=== PATIENT | male | born 1975 | race Caucasian/White ===

== ENCOUNTER 2020-12-29 02:05 | Emergency (ER) | payer OTHER ==
[2020-12-29] MEDS ORDERED: Nitroglycerin 0.4 MG Tab.SL ONE ×3 (02:15)
[2020-12-29] MEDS ORDERED: Aspirin 81 MG Tab.Chew PO ONE (02:25)
[2020-12-29] MEDS ORDERED: Nitroglycerin 0.4 MG Tab.SL SL ONE ×2 (02:25→02:31)
[2020-12-29] MEDS ORDERED: Sodium Chloride 0.9% 1,000 ML IV ONE (02:25)
[2020-12-29] MEDS ORDERED: Morphine 2 MG/ML SYRINGE IVPUSH ONE ×2 (02:25→02:31)
[2020-12-29] MEDS ORDERED: Sodium Chloride 0.9% 10 ML Syringe FLUSH PRN (02:25)
[2020-12-29] MEDS ORDERED: Clopidogrel 75 MG Tab PO ONE (02:28)
[2020-12-29] MEDS ORDERED: Heparin Sodium 5,000 Units/ML Vial IVPUSH ONE (02:28)
[2020-12-29] MEDS ORDERED: Ticagrelor 90 MG Tab PO ONE (02:30)
[2020-12-29] MEDS ORDERED: Heparin Sodium/0.45% NaCl 25,000 UNITS/500 ML BAG IV SCH (02:30)
[2020-12-29] MEDS ORDERED: Ondansetron 4 MG/2 ML SDV IVPUSH ONE (02:32)
--- NOTE | 2020-12-29 02:39 | EDM.PDOC ---
ED HPI GENERAL MEDICAL PROBLEM - General Time Seen by Provider: 12/29/20 02:24 Source of Information: Reports: Patient, Family - History of Present Illness INITIAL COMMENTS - FREE TEXT/NARRATIVE: Virgil is a 45 y/o male who presents to the ER with sharp, constant chest pain that radiates over his entire chest. He woke up from sleep about 30 minutes ago. Rates it 8/10. Denies any previous hx of cardiac issues. No nausea or vomiting. Denies health issues. Review of Systems - Review of Systems Review Of Systems: See Below Constitutional: Reports: No Symptoms Eyes: Reports: No Symptoms Ears: Reports: No Symptoms Nose: Reports: No Symptoms Mouth/Throat: Reports: No Symptoms Respiratory: Reports: No Symptoms Cardiovascular: Reports: Chest Pain GI/Abdominal: Reports: No Symptoms Genitourinary: Reports: No Symptoms Musculoskeletal: Reports: No Symptoms Skin: Reports: No Symptoms Neurological: Reports: No Symptoms Psychiatric: Reports: No Symptoms ED EXAM, GENERAL - Physical Exam Exam: See Below General Appearance: Alert, WD/WN, No Apparent Distress (Obese adult male, obviously in pain) Ears: Hearing Grossly Normal Nose: Normal Inspection Throat/Mouth: Normal Lips, Normal Oropharynx, Normal Voice Head: Atraumatic, Normocephalic Neck: Normal Inspection Respiratory/Chest: No Respiratory Distress, Lungs Clear Cardiovascular: Normal Peripheral Pulses, Regular Rate, Rhythm GI/Abdominal: Normal Bowel Sounds, Soft, Non-Tender, Other (Obese) (Male) Exam: Deferred Rectal (Males) Exam: Deferred Back Exam: Normal Inspection Extremities: Normal Inspection, Normal Range of Motion, No Pedal Edema, Normal Capillary Refill Neurological: Alert, Oriented, CN II-XII Intact, No Motor/Sensory Deficits Skin Exam: Warm, Dry, Intact, Normal Color #1 Interpretation EKG Date: 12/29/20 Time: 01:55 Rhythm: NSR EKG Interpretation Comments: SR with early elevation in V3 and V4 #2 Interpretation EKG Date: 12/29/20 Time: 02:37 Rhythm: Other (Sinus Tach) Rate (Beats/Min): 158 [place]: Normal P-Wave: Present QRS: RBBB ST-T: Elevated EKG Interpretation Comments: RBBB with ST Elevation, Acute MD Course - Vital Signs Text/Narrative:: 0200 Patient was seen on arrival. Labs and EKG orderd. Nitro SL ordered. 0220 Still having 8/10 pain, Morphine 1mg IVP ordered. 0235 [facility] contacted and EKgs sent for review. Harmony7Dr Urias is cardiology quality control scientist and did not feel this was a STEMI at this time. Will start Heparin and then plan transfer in AM. Morphine 1mg x 2 given for pain. Heparin 4000u bolus and then 1000 units/hr started. Brilinta 180mg po given. [address] changes in all leads with RBBB noted, when elevations more pronounced, BP drops. Still having 8/10 chest pain. Repeat EKG sent to [place] and Dr Urias accepted the patient. 0308 Pt departed ER with [facility]. Pain still present, but patient reports "Better". - Orders/Labs/Meds Orders: Active Orders 24 hr Category Date Time Status EKG Documentation Completion [RC] STAT Care 12/29/20 02:24 Ordered Chest 1V Frontal [CR] Stat Exams 12/29/20 02:24 Ordered Heparin Sodium/0.45% NaCl [Heparin 25,000 Units in 1/2 Med 12/29/20 02:30 Ordered NS 500 ML] 25,000 units in 500 ml IV TITRATE Sodium Chloride 0.9% @ Wide Open(1,000ml) Med 12/29/20 02:25 Ordered Sodium Chloride 0.9% [Normal Saline] 1,000 ml IV ONETIME Sodium Chloride 0.9% [Saline Flush] Med 12/29/20 02:25 Ordered 10 ml FLUSH ASDIRECTED PRN Saline Lock Insert [OM.PC] Stat Oth 12/29/20 02:24 Ordered Medication Orders Sodium Chloride (Normal Saline) 1,000 mls @ 999 mls/hr IV ONETIME ONE Stop: 12/29/20 03:25 Heparin Sodium/Sodium Chloride (Heparin 25,000 Units In 1/2 Ns 500 Ml) 25,000 units in 500 mls @ 20 mls/hr IV TITRATE HALLIE; Protocol Sodium Chloride (Sodium Chloride 0.9% 10 Ml Syringe) 10 ml FLUSH ASDIRECTED PRN PRN Reason: Keep Vein Open Labs: Laboratory Tests 12/29/20 12/29/20 12/29/20 Range/Units 02:20 02:20 02:20 WBC 9.0 (4.0-10.0) x10^3/uL RBC 4.92 (4.5-6.0) x10^6/uL Hgb 15.7 (14.0-18.0) g/dL Hct 45.2 (40.0-52.0) % MCV 91.9 (78.0-93.0) fL MCH 31.9 (26.0-32.0) pg MCHC 34.7 (32.0-36.0) g/dL RDW Coeff of Jace 13.1 (10.0-15.0) % Plt Count 301 (130-400) x10^3/uL Immature Gran % (Auto) 0.30 (0.00-0.43) % Neut % (Auto) 48.5 L (50.0-80.0) % Lymph % (Auto) 30.5 (25.0-50.0) % Stephens % (Auto) 12.1 H (2.0-11.0) % Eos % (Auto) 7.9 H (0.0-4.0) % Baso % (Auto) 0.7 (0.2-1.2) % Neut # (Auto) 4.4 (1.8-7.7) x10^3/uL Lymph # (Auto) 2.8 (1.0-4.8) x10^3/uL Stephens # (Auto) 1.1 H (0.0-0.8) x10^3/uL Eos # (Auto) 0.7 H (0.0-0.5) x10^3/uL Baso # (Auto) 0.1 (0.0-0.2) x10^3/uL Immature Gran # (Auto) 0.03 (0.00-0.07) x10^3/uL PT 9.9 (9.9-12.5) SEC INR 0.9 L (2.0-3.5) APTT 24.3 L (25.6-32.8) SEC Sodium 141 (136-145) mmol/L Potassium 4.2 (3.5-5.1) mmol/L Chloride 104 (98-107) mmol/L Carbon Dioxide 29 (21-32) mmol/L Anion Gap 12.2 (5-15) mmol/L BUN 20 H (7-18) mg/dL Creatinine 1.2 (0.70-1.30) mg/dL Est Cr Clr Drug Dosing TNP Estimated GFR (MDRD) > 60 Glucose 151 H (70-99) mg/dL Calcium 9.1 (8.5-10.1) mg/dL Corrected Calcium 9.3 (8.5-10.1) mg/dL Magnesium 2.1 (1.8-2.4) mg/dL Total Bilirubin 0.3 (0.2-1.0) mg/dL AST 26 (15-37) U/L ALT 48 (16-63) U/L Alkaline Phosphatase 62 (46-116) U/L Troponin I High Sens 13 (<=76) ng/L Total Protein 7.1 (6.4-8.2) g/dL Albumin 3.7 (3.4-5.0) g/dL Globulin 3.4 Albumin/Globulin Ratio 1.09 Amylase 59 (25-115) U/L Lipase 280 (73-393) U/L Meds: Medications Generic Name Dose Route Start Last Admin Trade Name Freq PRN Reason Stop Dose Admin Sodium Chloride 1,000 mls @ 999 mls/hr 12/29/20 02:25 Normal Saline IV 12/29/20 03:25 ONETIME ONE Heparin Sodium/Sodium Chloride 25,000 units in 500 mls @ 20 mls/hr 12/29/20 02:30 Heparin 25,000 Units In 1/2 Ns 500 Ml IV TITRATE HALLIE Protocol 1,000 UNITS/HR Sodium Chloride 10 ml 12/29/20 02:25 Sodium Chloride 0.9% 10 Ml Syringe FLUSH ASDIRECTED PRN Keep Vein Open Discontinued Medications Generic Name Dose Route Start Last Admin Trade Name Freq PRN Reason Stop Dose Admin Aspirin 324 mg 12/29/20 02:25 Aspirin 81 Mg Tab.Chew PO 12/29/20 02:26 ONETIME ONE Clopidogrel Bisulfate 600 mg 12/29/20 02:28 Clopidogrel 75 Mg Tab PO 12/29/20 02:29 ONETIME ONE Heparin Sodium (Porcine) 4,000 units 12/29/20 02:28 Heparin Sodium 5,000 Units/Ml Vial IVPUSH 12/29/20 02:29 .BOLUS ONE Heparin Sodium/Sodium Chloride Confirm 12/29/20 02:51 Heparin 25,000 Units In 1/2 Ns 500 Ml Administered 12/29/20 02:52 Dose 500 mls @ as directed .ROUTE .STK-MED ONE Morphine Sulfate 1 mg 12/29/20 02:25 Morphine 2 Mg/Ml Syringe IVPUSH 12/29/20 02:26 ONETIME ONE Morphine Sulfate 1 mg 12/29/20 02:31 Morphine 2 Mg/Ml Syringe IVPUSH 12/29/20 02:32 ONETIME ONE Nitroglycerin 0.4 mg 12/29/20 02:25 Nitroglycerin 0.4 Mg Tab.Sl SL 12/29/20 02:26 ONETIME ONE Nitroglycerin 0.4 mg 12/29/20 02:31 Nitroglycerin 0.4 Mg Tab.Sl SL 12/29/20 02:32 ONETIME ONE Ondansetron HCl 4 mg 12/29/20 02:32 Ondansetron 4 Mg/2 Ml Sdv IVPUSH 12/29/20 02:33 ONETIME ONE Ticagrelor 180 mg 12/29/20 02:30 Ticagrelor 90 Mg Tab PO 12/29/20 02:31 ONETIME ONE Departure - Departure Time of Disposition: 02:59 Disposition: DC/Tfer to Acute Hospital 02 Condition: Good Clinical Impression: STEMI (ST elevation myocardial infarction) Qualifiers: Involved coronary artery: unspecified coronary artery Qualified Code(s): I21.3 - ST elevation (STEMI) myocardial infarction of unspecified site - Discharge Information Forms: Interfacility Transfer EMTALA Additional Instructions: -Transfer to [facility] to Dr Urias via [facility] - Problem List & Annotations (1) STEMI (ST elevation myocardial infarction) SNOMED Code(s): 53548870, 16596203 Code(s): I21.3 - ST ELEVATION (STEMI) MYOCARDIAL INFARCTION OF UNSP SITE Status: Acute Annotation/Comment:: Transferred to [facility] Qualifiers: Involved coronary artery: unspecified coronary artery Qualified Code(s): I21.3 - ST elevation (STEMI) myocardial infarction of unspecified site - Problem List Review Problem List Initiated/Reviewed/Updated: Yes - My Orders Last 24 Hours: My Active Orders 12/29/20 02:24 EKG Documentation Completion [RC] STAT Chest 1V Frontal [CR] Stat Saline Lock Insert [OM.PC] Stat 12/29/20 02:25 Sodium Chloride 0.9% @ Wide Open(1,000ml) Sodium Chloride 0.9% [Normal Saline] 1,000 ml IV ONETIME Sodium Chloride 0.9% [Saline Flush] 10 ml FLUSH ASDIRECTED PRN 12/29/20 02:30 Heparin Sodium/0.45% NaCl [Heparin 25,000 Units in 1/2 NS 500 ML] 25,000 units in 500 ml IV TITRATE - Assessment/Plan Last 24 Hours: My Active Orders 12/29/20 02:24 EKG Documentation Completion [RC] STAT Chest 1V Frontal [CR] Stat Saline Lock Insert [OM.PC] Stat 12/29/20 02:25 Sodium Chloride 0.9% @ Wide Open(1,000ml) Sodium Chloride 0.9% [Normal Saline] 1,000 ml IV ONETIME Sodium Chloride 0.9% [Saline Flush] 10 ml FLUSH ASDIRECTED PRN 12/29/20 02:30 Heparin Sodium/0.45% NaCl [Heparin 25,000 Units in 1/2 NS 500 ML] 25,000 units in 500 ml IV TITRATE Plan: -See above
[2020-12-29 02:43] LABS: PTT,PARTIAL THROMBOPLSTIN TIME 24.3 SEC (25.6-32.8)
[2020-12-29 02:47] LABS: ANION GAP 12.2 mmol/L (5-15); CHLORIDE,CL 104 mmol/L (98-107); SODIUM,NA 141 mmol/L (136-145)
[2020-12-29] MEDS ORDERED: Heparin Sodium/0.45% NaCl 500 ML ONE (02:51)
[2020-12-29] MEDS ORDERED: Morphine 2 MG/ML SYRINGE ONE (02:53)
== END 2020-12-29 03:09 | disposition short-term general hospital (02) ==
LOC: VM.ED 02:05
DX: I21.3 ST elevation (STEMI) myocardial infarction of unspecified site (principal)
CPT/HCPCS: 80053; 82150; 83690; 83735; 84484; 85025; 85610; 85730; 93005; 93010; 96374; 96375; 99284; 99285-25; A9270-GY; J1644; J2270; J7030